=== PATIENT | female | born 2000 | race African-American/Black ===

== ENCOUNTER 2021-05-29 07:09 | Emergency (ER) | payer SELFPAY ==
[~2021-05-29] VITALS: Ht 170.2 cm; Wt 77.1 kg
--- NOTE | 2021-05-29 07:35 | NUR ---
The patient bib friend for c/o nausua and vomiting which started yesterday after eating, the patient also c/o of abdominal pain and rates it 3/10. Abdomen soft and non-distended. Respiration regular and unlabored. Will continue to monitor the patient.
[2021-05-29] MEDS ORDERED: LIDOCAINE VISCOUS 2% UD 15 ML UDC ONE (07:45)
[2021-05-29] MEDS ORDERED: MAG HYDROX/AL HYDROX/SIMETH 30 ML UDC ONE (07:45)
[2021-05-29] MEDS: MAG HYDROX/AL HYDROX/SIMETH 30 ML UDC PO ONE (07:49)
[2021-05-29] MEDS: LIDOCAINE VISCOUS 2% UD 15 ML UDC MM ONE (07:49)
--- NOTE | 2021-05-29 07:50 | NUR ---
The patient is taken for xray.
--- NOTE | 2021-05-29 07:56 | NUR ---
The patient is back from xray in stable condition.
--- NOTE | 2021-05-29 08:48 | NUR ---
DR. GOULD AT BEDSIDE. PT STILL C/O FEELING NAUSEOUS AND ABDOMINAL PAIN.
[2021-05-29] MEDS ORDERED: DICYCLOMINE HCL INJ 20 MG/2 ML AMPUL IM ONE (08:56)
[2021-05-29] MEDS ORDERED: ONDANSETRON 4 MG TAB.RAPDIS ONE (08:56)
[2021-05-29] MEDS ORDERED: DICY10CA37 PO (09:00)
[2021-05-29] MEDS ORDERED: FAMO-131 PO (09:00)
[2021-05-29] MEDS ORDERED: ONDA4TAB5 PO (09:00)
[2021-05-29] MEDS: ONDANSETRON 4 MG TAB.RAPDIS SL ONE (09:06)
[2021-05-29] MEDS: DICYCLOMINE HCL INJ 20 MG/2 ML AMPUL IM ONE (09:06)
--- NOTE | 2021-05-29 09:10 | NUR ---
PO CHALLENGED TOLERATED BY PATIENT.
[2021-05-29 09:18] VITALS: BP 106/72
--- NOTE | 2021-05-29 09:18 | NUR ---
Patient a/ox4, breathing even and unlabored, no sob noted. Patient discharged to home in stable condition. Written and verbal after care instructions given. Patient verbalizes understanding of instruction.
== END 2021-05-29 09:18 | disposition home or self-care (01) ==
LOC: ER 07:15
DX: R09.89 Other specified symptoms and signs involving the circulatory and respiratory systems (principal); R11.2 Nausea with vomiting, unspecified; R19.7 Diarrhea, unspecified; Z79.899 Other long term (current) drug therapy
CPT/HCPCS: 70360; 96372; 99283; J0500; Q0162